=== PATIENT | male | born 1995 | race Hispanic/Latino ===

== ENCOUNTER 2021-05-27 07:59 | Emergency (ER) | payer SELFPAY ==
--- NOTE | 2021-05-27 08:53 | RAD REPORT ---
EXAM DESCRIPTION: CT - Abdomen Pelvis W Contrast - 05/27/2021 8:38 am CLINICAL HISTORY: left sided abd pain;Abd pain COMPARISON: No comparisons TECHNIQUE: Biphasic, helical CT imaging of the abdomen and pelvis was performed following 100 ml non -ionic IV contrast. No oral contrast administered. All CT scans are performed using dose optimization technique as appropriate and may include automated exposure control or mA/KV adjustment according to patient size. FINDINGS: No suspicious findings in the lung bases. The liver, spleen, and pancreas show no suspicious focal findings. Gallbladder and biliary tree are a lso without suspicious finding. Liver attenuation is borderline fatty infiltrated. Symmetric renal function is seen with no hydronephrosis or suspicious renal mass. No pyelonephritis o r acute parenchymal process. No bladder abnormalities. No adrenal abnormalities. No stomach or small bowel abnormality. The appendix is normal. From cecum through the mid descending colon no abnormality identified. Rectum and sigmoid show no significant finding. In the distal portio n of the descending colon there is a short segment wall thickening with adjacent edema and stranding in the fat. No extraluminal air or bowel content. Elsewhere no free air, free fluid, pneumatosis or inflammatory stranding. No mass or bulky lymphad enopathy. Patient has a small left inguinal hernia containing only a small amount of fat. No suspicious bony findings. IMPRESSION: Short segment wall thickening and adjacent stranding in the distal descending colon. No extraluminal air or bowel content. Colon finding is nonspecific. The patient does not have any measurable diverticulosis. No diverticuli tis is still possible. A nonspecific colitis would be a primary consideration as well. Mass lesion is not excluded but would not be expected in a patient this age. Nonacute findings detailed in the body of the report.
[2021-05-27 08:54] LABS: Absolute Lymphocytes (CBC) 1.4 K/uL (0.7-4.9); Basophils % 0.2 % (0-1.3); Hematocrit 44.8 % (39.6-49.0); Lymphocytes % 19.5 % (15.3-44.8); MPV 9.5 fL (7.6-11.3); RBC Red Blood Cell Count 5.39 M/uL (4.33-5.43)
--- NOTE | 2021-05-27 08:59 | ER ---
Nurse's Notes [facility] Name: Rolf Perea Age: 25 yrs Sex: Male : 1995 Arrival Date: 05/27/2021 Time: 08:03 Bed Waiting Private MD: Diagnosis: Left sided colitis without complications Presentation: 05/27 08:05 Chief complaint: Patient states: L lower quad pain X 1 dayh. Coronavirus screen: Client da3 denies travel out of the [place] in the last 14 days. At this time, the client does not indicate any symptoms associated with coronavirus-19. Ebola Screen: No symptoms or risks identified at this time. 08:05 Method Of Arrival: Ambulatory da3 08:05 Acuity: JUANA 3 da3 Triage Assessment: 08:08 General: Appears in no apparent distress. comfortable. da3 Historical: - Allergies: 08:07 No Known Allergies; da3 - PMHx: 08:07 None; da3 - Family history:: not pertinent. - Hospitalizations: : No recent hospitalization is reported. - Coronavirus screen:: The patient has NOT traveled to [place] in the past 14 days. The patient has NOT had contact with known/suspected case of Coronavirus?. Assessment: 09:34 General: Appears in no apparent distress. comfortable. Pain: Complains of pain in da3 abdomen Pain does not radiate. Pain Quality of pain is described as sharp, Pain began 2-3 days ago. Vital Signs: 08:05 BP 143 / 92; Pulse 95; Resp 18; Temp 97.1; Pulse Ox 98% on R/A; da3 ED Course: 07:45 Initial lab(s) drawn, by ED staff, sent to lab. Inserted saline lock: 20 gauge in right kj1 antecubital area, using aseptic technique. Blood collected. 08:03 Patient arrived in ED. mr 08:04 Silvia Sher FNP-C [facility] kb 08:04 Richie Aragon MD is Attending Physician. kb 08:04 Richie Aragon MD is Attending Physician. rn 08:07 Triage completed. da3 08:38 CT Abd/Pelvis - IV Contrast Only In Process Unspecified. EDMS 08:57 Arun Menard MD is Referral Physician. rn Administered Medications: No medications were administered Outcome: 08:58 Discharge ordered by MD. rn 09:36 Patient left the ED. da3 Signatures: Dispatcher [employer] EDMS Silvia Sher, KEEGAN MARTE-Edith Bonilla Roman, MD MD rn Jackson, Janet 1 Cesar Dias RN RN [email or web address]
--- NOTE | 2021-05-27 08:59 | EDPHYS ---
Physician Documentation [facility] Name: Rolf Perea Age: 25 yrs Sex: Male : 1995 Arrival Date: 05/27/2021 Time: 08:03 Bed Waiting Private MD: ED Physician Richie Aragon HPI: 05/27 08:14 This 25 yrs old Male presents to ER via Ambulatory with complaints of rn Abdominal Pain. 08:14 The patient presents with abdominal pain in the left lower quadrant. Onset: The rn symptoms/episode began/occurred yesterday. The symptoms do not radiate. Associated signs and symptoms: Pertinent positives: anorexia, diarrhea, Pertinent negatives: nausea and vomiting, blood in stools, fever, hematuria, shortness of breath, testicular pain, vomiting blood. The symptoms are described as sharp, stabbing. Modifying factors: The symptoms are alleviated by nothing, the symptoms are aggravated by movement, touching the area. Severity of pain: At its worst the pain was moderate in the emergency department the pain is unchanged. The patient has not experienced similar symptoms in the past. The patient has not recently seen a physician. Patient reports woke up yesterday morning with left-sided abdominal pain, decreased appetite. Hurts when touching area/walking/driving. Reports mild nonbloody diarrhea. Had Covid shot yesterday, but abdominal pain preceded vaccination. Denies fever. Has never had this before. No urinary symptoms or hematuria. No history of kidney stones.. Historical: - Allergies: 08:07 No Known Allergies; da3 - PMHx: 08:07 None; da3 - Family history:: not pertinent. - Hospitalizations: : No recent hospitalization is reported. - Coronavirus screen:: The patient has NOT traveled to [place] in the past 14 days. The patient has NOT had contact with known/suspected case of Coronavirus?. ROS: 08:14 Constitutional: Negative for fever, chills, and weight loss, Eyes: Negative for injury, rn pain, redness, and discharge, Neck: Negative for injury, pain, and swelling, Cardiovascular: Negative for chest pain, palpitations, and edema, Respiratory: Negative for shortness of breath, cough, wheezing, and pleuritic chest pain, Abdomen/GI: Negative for nausea, vomiting, and constipation, Back: Negative for injury and pain, : Negative for injury, bleeding, discharge, and swelling, MS/Extremity: Negative for injury and deformity, Skin: Negative for injury, rash, and discoloration, Neuro: Negative for headache, weakness, numbness, tingling, and seizure. 08:14 All other systems are negative. rn Exam: 08:14 Constitutional: This is a well developed, well nourished patient who is awake, alert, rn and in no acute distress. Head/Face: Normocephalic, atraumatic. Eyes: Periorbital areas with no swelling, redness, or edema. Cardiovascular: Regular rate and rhythm. No pulse deficits. Respiratory: Speaking full sentences, unlabored. No increased work of breathing, no retractions or nasal flaring. Abdomen/GI: Soft, positive tenderness left lower quadrant and left upper quadrant with guarding. No masses. Skin: Warm, dry MS/ Extremity: Pulses equal, no cyanosis. Neuro: Awake and alert, GCS 15 Vital Signs: 08:05 BP 143 / 92; Pulse 95; Resp 18; Temp 97.1; Pulse Ox 98% on R/A; da3 MDM: 08:04 Patient medically screened. rn 08:56 Differential diagnosis: diverticulitis, non-specific abd pain, Colitis, inflammatory rn bowel disease, nonspecific abdominal pain, viral syndrome. Data reviewed: vital signs, nurses notes, lab test result(s), radiologic studies, CT scan, and as a result, I will discharge patient. Counseling: I had a detailed discussion with the patient and/or guardian regarding: the historical points, exam findings, and any diagnostic results supporting the discharge/admit diagnosis, lab results, radiology results, the need for outpatient follow up, to return to the emergency department if symptoms worsen or persist or if there are any questions or concerns that arise at home. Special discussion: Based on the patient's Hx, exam, and Dx evaluation, there is no indication for emergent surgery or inpatient Tx. It is understood by the patient/guardian that if the Sx's persist or worsen they need to return immediately for re-evaluation. I discussed with the patient/guardian in detail that at this point there is no indication for admission to the hospital. It is understood, however, that if the symptoms persist or worsen the patient needs to return immediately for re-evaluation. I discussed with the patient the need to follow-up with the PCP/specialist for the noted incidental finding on X-ray/CT scanning. Based on the history and exam findings, there is no indication for further emergent testing or inpatient evaluation. I discussed with the patient/guardian the need to see the import manager for further evaluation of the symptoms. 05/27 08:14 Order name: Basic Metabolic Panel rn 05/27 08:14 Order name: CBC with Diff; Complete Time: 08:56 rn 05/27 08:14 Order name: Hepatic Function rn 05/27 08:14 Order name: Lipase rn 05/27 08:14 Order name: CT Abd/Pelvis - IV Contrast Only; Complete Time: 08:56 rn 05/27 08:14 Order name: Basic Metabolic Panel EDMS 05/27 08:14 Order name: IV Saline Lock rn 05/27 08:14 Order name: Labs collected and sent rn Administered Medications: No medications were administered Disposition Summary: 05/27/21 08:58 Discharge Ordered Location: Home rn Problem: new rn Symptoms: have improved rn Condition: Stable rn Diagnosis - Left sided colitis without complications rn Followup: rn - With: Arun Menard MD - When: As needed - Reason: Recheck today's complaints, Re-evaluation by your physician Discharge Instructions: - Discharge Summary Sheet rn - Colitis rn Forms: - Medication Reconciliation Form rn - Work release form bd - Thank You Letter rn - 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 - Prescription Opioid Use rn - Family Work Release da3 Prescriptions: - Cipro 500 mg Oral Tablet - take 1 tablet by ORAL route every 12 hours for 10 days; 20 tablet; Refills: 0, rn Product Selection Permitted - Flagyl 500 mg Oral Tablet - take 1 tablet by ORAL route every 8 hours for 10 days; 30 tablet; Refills: 0, rn Product Selection Permitted Signatures: Dispatcher [employer] Richie Pitt MD MD rn Allan, David, RN RN da3 Corrections: (The following items were deleted from the chart) 08:18 08:14 Constitutional: This is a well developed, well nourished patient who is awake, rn alert, and in no acute distress. rn
[2021-05-27 09:04] LABS: Bilirubin Direct 0.1 mg/dL (0-0.2); Bilirubin Total 0.4 mg/dL (0.2-1.0); Protein, Total 8.2 g/dL (6.4-8.2)
[2021-05-27 09:41] VITALS: BP 143/92; TEMP 97.1; O2SAT 98
== END 2021-05-27 09:36 | disposition home or self-care (01) ==
LOC: ER 07:59
DX: K51.50 Left sided colitis without complications (principal)
CPT/HCPCS: 36415; 74177; 80048; 80076; 83690; 85025; 99283; Q9967

== ENCOUNTER 2021-08-12 18:20 | Emergency (ER) | payer OTHER, SELFPAY ==
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
[2021-08-12 20:45] VITALS: BP 141/90; TEMP 98.8; O2SAT 100
== END 2021-08-12 20:20 | disposition home or self-care (01) ==
LOC: ER 18:20
DX: S09.90XA Unspecified injury of head, initial encounter (principal); S80.812A Abrasion, left lower leg, initial encounter; S20.219A Contusion of unspecified front wall of thorax, initial encounter; V49.40XA Driver injured in collision with unspecified motor vehicles in traffic accident, initial encounter
CPT/HCPCS: 70450; 72125; 71260; 74177; 73590; Q9967; 99285